=== PATIENT | female | born 1950 | race Caucasian/White ===

== ENCOUNTER 2023-12-11 11:38 | Inpatient (IN) ==
[2023-12-11] MEDS: ONDANSETRON INJ 2 MG/ML 2 ML VIAL IV STA (11:53)
--- NOTE | 2023-12-11 11:58 | Emergency Department Note ---
Impression & Plan SBO (small bowel obstruction), Abdominal pain, epigastric ED Provider Note NAME: KEL GONGORA AGE: 73 SEX: F : 1950 ARRIVES VIA: Walk-In INFORMANT: Patient, ED PROVIDER(S): Grabiel Rockwell DO CHIEF COMPLAINT: Abdominal pain HPI: The patient is a 73-year-old female who presented to the emergency department for an evaluation of abdominal pain. The patient describes upper abdominal pain that began overnight. She states the pain was very severe overnight. She felt as though something was caught that she ate but she did not have any specific chest pain it was mostly epigastric pain. She denies having any rectal bleeding. She has a history of cholecystectomy in the past and thought the pain was similar. The patient denies having any back pain. ROS: See above HPI for pertinent positives & negatives. A total of 10 systems reviewed and were otherwise negative. PAST MEDICAL HISTORY: See Below PAST SURGICAL HISTORY: See Below FAMILY HISTORY: See Below SOCIAL HISTORY: See Below HOME MEDICATIONS: See Below ALLERGIES: See Below VITALS: See Below PHYSICAL EXAMINATION: GENERAL: Patient is awake alert in no acute distress patient is resting comfortably and showing no signs of anxiety EYES: The conjunctivae are clear. The pupils are round and reactive. EARS, NOSE, MOUTH AND THROAT: The nose is without any evidence of any deformity. Mucous membranes are moist. Tongue is midline. NECK: The neck is nontender and supple. RESPIRATORY: Normal respiratory effort is noted there is no evidence of wheezing rhonchi or rales CARDIOVASCULAR: Regular rate and rhythm noted there no murmurs rubs or gallops normal S1 normal S2. GASTROINTESTINAL: The abdomen is soft and nondistended. There is epigastric and supraumbilical pain to palpation. There is no palpable mass. MUSCULOSKELETAL/EXTREMITIES: There is no evidence of gross deformity full range of motion is noted in the hips and shoulders. SKIN: There is no obvious evidence of any rash. There are no petechiae, pallor or cyanosis noted. NEUROLOGIC: Patient is awake alert and oriented x3 gait was steady. MEDICAL DECISION MAKING: The patient is a 73-year-old female who presented to the emergency department for an evaluation of upper abdominal pain. The patient complained of epigastric and supraumbilical pain. On physical exam she did not have guarding however given her age and comorbidities further laboratory and radiographic studies were obtained. A CT of the abdomen and pelvis was obtained which appears to be consistent with a bowel obstruction and the suggestion of an internal hernia. I discussed the patient's condition with the on-call general surgeon. Given the patient's current physical exam it does not appear the patient is an acute surgical candidate. She is not actively vomiting. She did not require any pain medication. Surgery will consider to the patient for inpatient observation to determine what direction this process goes. I also discussed the case with the on-call [facility]. They have agreed to evaluate the patient in the emergency department for medical management. Triage Nursing notes reviewed. Prior medical records reviewed Vital Signs: reviewed and remarkable for no significant abnormalities Differential diagnosis: Etiologies such as appendicitis, diverticulitis, obstruction, inflammatory bowel disease, renal colic, PUD, biliary pathology, pancreatitis, mesenteric ischemia, aortic pathology, infections, genitourinary, UTI, perforated viscus, as well as others were entertained. ER treatment provided: See below Diagnostics interpreted by me: ECG: EKG was obtained in the emergency department. My interpretation is normal sinus rhythm at 95 bpm. There was no ectopy. Nonspecific lateral ST abnormalities were noted. No previous tracing was available. Cardiac Monitoring: An order was placed for continuous cardiac monitoring. The monitor shows a rate of 90 bpm with sinus rhythm. Laboratory studies: As stated above and show below. Imaging studies: See below. Radiographic imaging was reviewed by myself Consultation(s): I discussed this case with Dr. Horvath who is on-call for general surgery. I discussed this case with Jackie who is on-call for the [facility]. Past Med/Surg History Problem List (Updated 12/11/23 @ 13:25 by Grabiel Rockwell DO) Abdominal pain, epigastric (Acute) SBO (small bowel obstruction) (Acute) Surgical History (Updated 12/11/23 @ 13:49 by Grabiel Rockwell DO) History of cholecystectomy Social History Smoking Status: Never smoker Preferred Language: Kiswahili Feels Safe at Home: Yes Results & Data (ED) Vital Signs Vital Signs - 24 hr 12/11/23 11:40 12/11/23 11:58 12/11/23 12:08 Temperature 36.2 C L Temperature Source Temporal Artery Scan Pulse Rate 115 H 94 H 81 Pulse Rate [Apical] Pulse Rhythm Regular Respiratory Rate 18 16 Respiratory Effort / Characteristics Non-Labored Spontaneous Respiratory Depth Normal Respiratory Pattern Regular Blood Pressure 141/83 H Blood Pressure [Right Arm] Blood Pressure Mean 102 Blood Pressure Mean [Right Arm] Pulse Oximetry 18 L 91 Oxygen Delivery Method Room Air Room Air Sepsis Recent Fever Within 48 Hours No Sepsis New/Unexplained Change in Mental Status N/A Sepsis Action Taken by Nursing No Action Required 12/11/23 13:13 Temperature Temperature Source Pulse Rate Pulse Rate [Apical] 90 Pulse Rhythm Respiratory Rate 20 Respiratory Effort / Characteristics Non-Labored Respiratory Depth Normal Respiratory Pattern Blood Pressure Blood Pressure [Right Arm] 116/97 Blood Pressure Mean Blood Pressure Mean [Right Arm] 103 Pulse Oximetry 98 Oxygen Delivery Method Room Air Sepsis Recent Fever Within 48 Hours Sepsis New/Unexplained Change in Mental Status Sepsis Action Taken by [facility] Medications Current Medication List: was personally reviewed by me Laboratory Data Attestation: I reviewed the patient's lab results. 12/11/23 11:55 12/11/23 11:55 Lab Results 12/11/23 Range/Units 11:55 WBC 14.72 H (4.8-10.8) K/ul RBC 4.92 (4.20-5.40) M/uL Hgb 15.1 (12.0-16.0) g/dl Hct 45.5 (37.0-47.0) % MCV 92.5 (80.0-100.0) fL MCH 30.7 (25.0-34.0) pg MCHC 33.2 (32.0-36.0) g/dL RDW Std Deviation 38.2 (36.4-46.3) fL RDW Coeff of Delgado 11.1 L (11.5-14.5) % Plt Count 332 (130-400) K/uL MPV 9.4 (9.4-12.4) fL Immature Gran % (Auto) 0.4 % Neut % (Auto) 92.1 % Lymph % (Auto) 5.6 % Sharkey % (Auto) 1.7 % Eos % (Auto) 0.1 % Baso % (Auto) 0.1 % Neut # (Auto) 13.56 H (1.40-6.50) K/uL Lymph # (Auto) 0.82 L (1.20-3.40) K/uL Sharkey # (Auto) 0.25 (0.11-0.59) K/uL Eos # (Auto) 0.01 (0.00-0.50) K/uL Baso # (Auto) 0.02 (0.00-0.20) K/uL Immature Gran # (Auto) 0.06 (0.01-0.20) K/uL Sodium 138 (136-145) mmol/L Potassium 4.2 (3.5-5.1) mmol/L Chloride 98 (98-107) mmol/L Carbon Dioxide 29 (21-32) mmol/L Anion Gap 11 (3-11) BUN 26 H (6-23) mg/dl Creatinine 1.00 (0.6-1.2) mg/dl Est Cr Clr Drug Dosing 46.4 ml/min eGFR 60.23 BUN/Creatinine Ratio 26.0 H (10-20) Glucose 134 H (70-99(Fasting)) mg/dl Calcium 10.1 (8.6-10.3) mg/dl Total Bilirubin 1.0 (0.2-1.0) mg/dl AST 28 (13-39) U/L ALT 15 (7-52) U/L Alkaline Phosphatase 87 (34-104) U/L Troponin I High Sens 5.8 (0-14) pg/ml Total Protein 8.7 H (6.0-8.3) gm/dl Albumin 4.7 (3.4-5.0) gm/dl Globulin 4.0 (2.5-4.0) gm/dl Albumin/Globulin Ratio 1.2 (0.9-2) Lipase 14 (11-82) U/L Administered Medications Discontinued Medications Ioversol (Optiray 320 100ml) 94 ml IV ONCE ONE Stop: 12/11/23 12:19 Last Admin: 12/11/23 12:18 Dose: 94 ml Documented By: EDK Ondansetron HCl (Ondansetron Inj 2 Mg/Ml 2 Ml Vial) 4 mg IV NOW STA Stop: 12/11/23 11:49 Last Admin: 12/11/23 11:53 Dose: 4 mg Documented By: BMK Imaging Data Attestation: I personally reviewed and interpreted this imaging study as follows: My Impression: CT the abdomen pelvis was obtained in the emergency department. My interpretation is no free air there is dilation of the small bowel. Final report below. Radiologist's Impression: Abdomen/Pelvis CT 12/11/23 11:[address] WITH IV CONTRAST CT DOSE: 1035.68 mGy.cm HISTORY: Acute upper abdominal pain upper pain TECHNIQUE: Multiaxial CT images of the abdomen and pelvis were performed following the IV administration of 94 cc of Optiray, A dose lowering technique was utilized adhering to the principles of ALARA. COMPARISON STUDY: None. FINDINGS: Clear lung bases. No pneumatosis or pneumoperitoneum. Cholecystectomy. Unremarkable spleen, mildly atrophic pancreas and adrenal glands.r probable cyst of the right hepatic lobe measures 11 mm. Patency of the hepatic and portal veins. Unremarkable kidneys. Partially decompressed bladder. Fibroid uterus. 5 cm left adnexal cystic lesion. Atherosclerosis of the abdominal aorta. No lymphadenopathy. Trace pelvic ascites. Colonic diverticulosis without acute diverticulitis. The large bowel and distal ileum are decompressed. Noninflamed appendix. There is twisting of the abdominal right lower quadrant mesentery. Several mildly dilated air and fluid-filled loops of small bowel noted within the abdomen and pelvis measuring up to approximately 3 cm. A transition point is noted within the abdominal right lower quadrant on image 238 series 3. Mild intraluminal edema. No acute fracture. Unremarkable soft tissues. IMPRESSION: 1. High-grade small bowel obstruction with transition point within the right hemipelvis, likely secondary to an internal hernia. Trace associated ascites with interloop edema. 2. No pneumatosis or pneumoperitoneum. 3. Normal appendix. 4. Colonic diverticulosis. 5. Indeterminate 5 cm left adnexal cystic lesion. 6. Fibroid uterus. ACT 112: Negative or not required by law. The above report was generated using voice recognition software. It may contain grammatical, syntax or spelling errors. Electronically signed by: Kris Brown M.D. 12/11/2023 12:45 PM Discharge Plan Visit Data Chief Complaint: Abdominal Pain Stated Complaint: ABDOMINAL PAIN ED Provider: Grabiel Rockwell Discharge Problem: SBO (small bowel obstruction), Abdominal pain, epigastric
[2023-12-11] MEDS: OPTIRAY 320 100ml IV ONE (12:18)
[2023-12-11 12:20] LABS: Hematocrit (blood only) 45.5 % (37.0-47.0); Hemoglobin 15.1 g/dl (12.0-16.0); Mean Corpuscular Hemoglobin 30.7 pg (25.0-34.0); Mean Corpuscular Hgb Conc 33.2 g/dL (32.0-36.0); Mean Corpuscular Volume 92.5 fL (80.0-100.0); Mean Platelet Volume 9.4 fL (9.4-12.4); Platelet Count 332 K/uL (130-400); RDW Coefficient of Variation 11.1 % (11.5-14.5); RDW Standard Deviation 38.2 fL (36.4-46.3); Red Blood Count 4.92 M/uL (4.20-5.40); White Blood Count 14.72 K/ul (4.8-10.8)
[2023-12-11 12:36] LABS: Albumin Globulin Ratio 1.2 (0.9-2); Albumin Level 4.7 gm/dl (3.4-5.0); Calcium 10.1 mg/dl (8.6-10.3); Creatinine Clr Calc Pharmacy 46.4 ml/min; Potassium 4.2 mmol/L (3.5-5.1); Total Protein 8.7 gm/dl (6.0-8.3)
[2023-12-11 12:40] LABS: Basophils # (auto) 0.02 K/uL (0.00-0.20); Basophils % (auto) 0.1 %; Eosinophils # (auto) 0.01 K/uL (0.00-0.50); Eosinophils % (auto) 0.1 %; Immature Granulocytes # (auto) 0.06 K/uL (0.01-0.20); Immature Granulocytes % (auto) 0.4 %; Lymphocytes # (auto) 0.82 K/uL (1.20-3.40); Lymphocytes % (auto) 5.6 %; Monocytes # (auto) 0.25 K/uL (0.11-0.59); Monocytes % (auto) 1.7 %; Neutrophils # (auto) 13.56 K/uL (1.40-6.50); Neutrophils % (auto) 92.1 %
[2023-12-11 12:43] LABS: Troponin I High Sensitivity 5.8 pg/ml (0-14)
--- NOTE | 2023-12-11 12:47 | CT Scan Report ---
ABDOMEN AND PELVIS CT WITH IV CONTRAST CT DOSE: 1035.68 mGy.cm HISTORY: Acute upper abdominal pain upper pain TECHNIQUE: Multiaxial CT images of the abdomen and pelvis were performed following the IV administrat ion of 94 cc of Optiray, A dose lowering technique was utilized adhering to the principles of ALARA. COMPARISON STUDY: None. FINDINGS: Clear lung bases. No pneumatosis or pneumoperitoneum. Cholecystectomy. Unremarkable spleen, mildly atrophic pancreas and adrenal glands.r probable cyst of the right hepatic lobe measures 11 mm . Patency of the hepatic and portal veins. Unremarkable kidneys. Partially decompressed bladder. Fibr oid uterus. 5 cm left adnexal cystic lesion. Atherosclerosis of the abdominal aorta. No lymphadenopat hy. Trace pelvic ascites. Colonic diverticulosis without acute diverticulitis. The large bowel and distal ileum are decompressed. Noninflamed appendix. There is twisting of the abdominal right lower quadran t mesentery. Several mildly dilated air and fluid-filled loops of small bowel noted within the abdome n and pelvis measuring up to approximately 3 cm. A transition point is noted within the abdominal rig ht lower quadrant on image 238 series 3. Mild intraluminal edema. No acute fracture. Unremarkable soft tissues. IMPRESSION: 1. High-grade small bowel obstruction with transition point within the right hemipelvis, likely secon tammie to an internal hernia. Trace associated ascites with interloop edema. 2. No pneumatosis or pneumoperitoneum. 3. Normal appendix. 4. Colonic diverticulosis. 5. Indeterminate 5 cm left adnexal cystic lesion. 6. Fibroid uterus. ACT 112: Negative or not required by law. The above report was generated using voice recognition software. It may contain grammatical, syntax o r spelling errors. Electronically signed by: Kris Brown M.D. 12/11/2023 12:45 PM
--- NOTE | 2023-12-11 13:40 | Surgery Consultation ---
Date of Consultation December 11, 2023 Assessment & Plan (1) SBO (small bowel obstruction): 73-year-old woman with a prior history of a laparoscopic cholecystectomy presents with a small bowel obstruction. I discussed the CT scan findings with the emergency room physician as well as the radiologist directly. It appears there may be an internal hernia, although this is not definite. She has mild dilatation upstream of small bowel loops. On exam, she has minimal signs and symptoms. Her pain has very significantly improved since 10:00 this morning. She has not had any pain medicine while at the emergency department. She does not have fevers or chills. White blood cell count is 14. I had a long di scussion with her and her concerning the findings on CT scan. Given the drastic improvement of her symptomatology as well as no signs or symptoms of bowel ischemia or extremis, we will proceed with careful conservative measures for now. She will be admitted to the medicine service and kept n.p.o. with IV fluid hydration. We will perform serial abdominal exams. If she develops any further symptoms or signs of worsening bowel obstruction, we will plan for exploratory laparoscopy with possible laparotomy in the operating room. We will follow her very closely while she is in the hospital. History of Present Illness Reason for Consultation: Small bowel obstruction Requesting Physician: Grabiel Rockwell MD Attending Physician: Grabiel Rockwell MD History of Present Illness 73-year-old woman with a past surgical history of laparoscopic cholecystectomy presents with a 12-hour history of severe upper abdominal pain with 2 episodes of vomiting. She denies fevers or chills. She has never had an episode like this in the past. The pain lasted until 10 AM this morning. Since 10:00, the pain has significantly improved. She has not had any pain medicine while at the hospital. She denies flatus this morning. She has never had any other abdominal operations. CT scan demonstrates small bowel obstruction with transition point in the right pelvis, there is a question of an internal hernia in this location. Patient History Social History Smoking Status: Never smoker Preferred Language: Vietnamese Feels Safe at Home: Yes Review of Systems Review of Systems: All systems reviewed & are unremarkable except as noted in HPI & below Physical Exam Constitutional: WD/WN, vitals as above Eyes: PERRL, conjunctivae normal, anicteric sclerae Neck: trachea midline, no thyromegaly Respiratory: normal respiratory effort; no respiratory distress and no labored breathing Cardiovascular: Rate/Rhythm: regular rate and regular rhythm Gastrointestinal (Abdomen): Inspection/Auscultation: abdomen normal to inspection; abdomen not distended Percussion/Palpation: + abdomen tender ( Mild tenderness upper abdomen) and abdomen soft; no guarding and abdomen not rigid Skin: no rashes, warm and dry Psychiatric: A+Ox3, euthymic affect Results & Data Vital Signs (Past 12 Hours) Vital Signs Temp Pulse Pulse Resp BP BP Pulse Ox 12/11/23 13:13 90 20 116/97 98 12/11/23 12:08 81 12/11/23 11:58 94 H 16 91 12/11/23 11:40 36.2 C L 115 H 18 141/83 H 18 L O2 Del Method 12/11/23 13:13 Room Air 12/11/23 12:08 12/11/23 11:58 Room Air 12/11/23 11:40 Room Air Laboratory Results 12/11/23 Range/Units 11:55 WBC 14.72 H (4.8-10.8) K/ul RBC 4.92 (4.20-5.40) M/uL Hgb 15.1 (12.0-16.0) g/dl Hct 45.5 (37.0-47.0) % MCV 92.5 (80.0-100.0) fL MCH 30.7 (25.0-34.0) pg MCHC 33.2 (32.0-36.0) g/dL RDW Std Deviation 38.2 (36.4-46.3) fL RDW Coeff of Delgado 11.1 L (11.5-14.5) % Plt Count 332 (130-400) K/uL MPV 9.4 (9.4-12.4) fL Immature Gran % (Auto) 0.4 % Neut % (Auto) 92.1 % Lymph % (Auto) 5.6 % Irion % (Auto) 1.7 % Eos % (Auto) 0.1 % Baso % (Auto) 0.1 % Neut # (Auto) 13.56 H (1.40-6.50) K/uL Lymph # (Auto) 0.82 L (1.20-3.40) K/uL Irion # (Auto) 0.25 (0.11-0.59) K/uL Eos # (Auto) 0.01 (0.00-0.50) K/uL Baso # (Auto) 0.02 (0.00-0.20) K/uL Immature Gran # (Auto) 0.06 (0.01-0.20) K/uL Sodium 138 (136-145) mmol/L Potassium 4.2 (3.5-5.1) mmol/L Chloride 98 (98-107) mmol/L Carbon Dioxide 29 (21-32) mmol/L Anion Gap 11 (3-11) BUN 26 H (6-23) mg/dl Creatinine 1.00 (0.6-1.2) mg/dl Est Cr Clr Drug Dosing 46.4 ml/min eGFR 60.23 BUN/Creatinine Ratio 26.0 H (10-20) Glucose 134 H (70-99(Fasting)) mg/dl Calcium 10.1 (8.6-10.3) mg/dl Total Bilirubin 1.0 (0.2-1.0) mg/dl AST 28 (13-39) U/L ALT 15 (7-52) U/L Alkaline Phosphatase 87 (34-104) U/L Troponin I High Sens 5.8 (0-14) pg/ml Total Protein 8.7 H (6.0-8.3) gm/dl Albumin 4.7 (3.4-5.0) gm/dl Globulin 4.0 (2.5-4.0) gm/dl Albumin/Globulin Ratio 1.2 (0.9-2) Lipase 14 (11-82) U/L Diagnostic Findings ABDOMEN AND PELVIS CT WITH IV CONTRAST CT DOSE: 1035.68 mGy.cm HISTORY: Acute upper abdominal pain upper pain TECHNIQUE: Multiaxial CT images of the abdomen and pelvis were performed following the IV administration of 94 cc of Optiray, A dose lowering technique was utilized adhering to the principles of ALARA. COMPARISON STUDY: None. FINDINGS: Clear lung bases. No pneumatosis or pneumoperitoneum. Cholecystectomy. Unremarkable spleen, mildly atrophic pancreas and adrenal glands.r probable cyst of the right hepatic lobe measures 11 mm. Patency of the hepatic and portal veins. Unremarkable kidneys. Partially decompressed bladder. Fibroid uterus. 5 cm left adnexal cystic lesion. Atherosclerosis of the abdominal aorta. No lymphadenopathy. Trace pelvic ascites. Colonic diverticulosis without acute diverticulitis. The large bowel and distal ileum are decompressed. Noninflamed appendix. There is twisting of the abdominal right lower quadrant mesentery. Several mildly dilated air and fluid-filled loops of small bowel noted within the abdomen and pelvis measuring up to approximately 3 cm. A transition point is noted within the abdominal right lower quadrant on image 238 series 3. Mild intraluminal edema. No acute fracture. Unremarkable soft tissues. IMPRESSION: 1. High-grade small bowel obstruction with transition point within the right hemipelvis, likely secondary to an internal hernia. Trace associated ascites with interloop edema. 2. No pneumatosis or pneumoperitoneum. 3. Normal appendix. 4. Colonic diverticulosis. 5. Indeterminate 5 cm left adnexal cystic lesion. 6. Fibroid uterus. ACT 112: Negative or not required by law.
--- NOTE | 2023-12-11 13:41 | History & Physical Report ---
Date of Service December 11, 2023 Assessment & Plan (1) SBO (small bowel obstruction): Piotr Patel is a 73y/o F with PMHx significant for dyslipidemia, prolapsed uterus and plantar warts who presented to the ED for evaluation of abdominal pain with associated nausea/vomiting and was found to have a high-grade SBO. High-Grade SBO: Vitals stable on presentation. WBC elevated at 14.72k, no acute electrolyte abnormalities. UA negative for infection. Leukocytosis likely reactive secondary to pain. CTAP revealed a high-grade small bowel obstruction with transition point within the right hemipelvis. General surgery was consulted in the ED --> Will proceed with careful conservative measures for now given significant improvement in her pain and nausea/vomiting. Gentle IVF replacement with LR's x 2 bags. Bowel rest, strict NPO. If the patient were to develop any further symptoms or signs of worsening bowel obstruction, she would then require surgical intervention such as an exploratory laparoscopy with possible laparotomy. As needed IV Tylenol and IV Zofran ordered. Incidental CTAP Finding: CTAP also noted an indeterminate 5cm left adnexal cystic lesion. Will need outpatient follow-up with COMMUNITY ENGAGEMENT REPRESENTATIVE for further evaluation. DVT Prophylaxis: SCDs/TEDs for now pending possible need for surgical intervention. Code Status: FULL CODE PCP: Tess Jones DO Disposition: Admit to Med/Surg Patient seen in collaboration with Dr. Stephen. Please see addendum. I spent a total of 50 minutes coordinating, documenting, and providing care for this patient excluding time spent in the performance of separately billed services. This included personally reviewing all current laboratories and imaging studies, medical reconciliation, outpatient chart review and discussion with specialists. This chart was completed in part utilizing Speech Voice Recognition Software. Grammatical errors, random word insertions, pronoun errors, and incomplete sentences are an occasional consequence of this system due to software limitations, ambient noise, and hardware issues. Any formal questions or concerns about the content, text, or information contained within the body of this dictation should be directly addressed to the provider for clarification. History of Present Illness Chief Complaint: Abdominal Pain, N/V Primary Care Provider: Tess Jones DO Veronica Patel is a 73y/o F with PMHx significant for dyslipidemia, prolapsed uterus and plantar warts who presented to the ED for evaluation of abdominal pain with associated nausea and vomiting. History obtained from patient and a ssociated chart review. Patient reports intermittent severe abdominal pain that started last night. Mentions that the pain is located mostly in her upper abdominal region. States that the pain was coming in waves and was very sharp in intensity but lasting only a few minutes at a time. She had 2 episodes of vomiting since last night. Denies any fevers or chills. Only past surgical history includes a laparoscopic cholecystectomy. No other abdominal operations that she recalls. Her pain is now well-controlled and she denies any nausea at this time. She has had 2 very small bowel movements since last night, describes them as soft in characteristic. Mentions that her stool looked a little bit darker in appearance, maybe even black this morning. She contributed this to eating some blueberries the other day. Her last meal was yesterday evening which consisted of an apple and some crackers. Believes that she last passed gas yesterday afternoon. She has not passed any gas today. Patient is not on any prescription medications. She does not smoke nor drink. Home Medications Medication Instructions Recorded Confirmed Type No Known Home Medications 12/11/23 12/11/23 History Past Med/Surg History Problem List Abdominal pain, epigastric (Acute) SBO (small bowel obstruction) (Acute) Surgical History History of cholecystectomy Social History Smoking Status: Never smoker Second Hand Exposure: No; Do You Dip or Chew Tobacco: No; Hx Alcohol Use: No Hx Substance Use: No Preferred Language: Yi Communication Ability: Effective Retail Sales Specialist Required: No Beliefs That Will Affect Care: None Current Living Situation: Spouse Other Information That Helps Us Care for You: No Feels Safe at Home: Yes Safety Concerns: Feels Safe At This Time Assistive Devices: None Review of Systems Review of Systems: At least ten systems reviewed and negative, except as noted in the HPI. Physical Exam Physical Exam: General: WD/WN, vitals as above, NAD, sitting up in bed, pleasant, conversing appropriately. A+Ox3, euthymic affect. HEENT: Normocephalic, atraumatic. PERRL, conjunctivae normal, anicteric sclerae. External ear and nose normal, oropharynx normal. Respiratory: Normal respiratory effort, lungs clear to auscultation, no wheeze, rales, rhonchi. No accessory muscle use. Cardiovascular: Regular rate, rhythm, no murmur, normal peripheral pulses, no BLE edema. Vessels: No JVD. Abdomen/GI: Mostly absent bowel sounds, soft, tender to palpation in upper abdominal region, no hepatosplenomegaly. Extremities/Musculoskeletal: No cyanosis or clubbing, extremities motor strength intact, moves all extremities. Neurologic: EOMI, no focal deficits, CN's II-XI not formally tested but appear grossly intact bilaterally. Skin: No rashes, normal color, warm/dry. Results & Data Results & Data Vital Signs (Past 12 Hours) Vital Signs Temp Pulse Pulse Resp BP BP Pulse Ox 12/11/23 13:13 90 20 116/97 98 12/11/23 12:08 81 12/11/23 11:58 94 H 16 91 12/11/23 11:40 36.2 C L 115 H 18 141/83 H 18 L O2 Del Method 12/11/23 13:13 Room Air 12/11/23 12:08 12/11/23 11:58 Room Air 12/11/23 11:40 Room Air Laboratory Results Short CBC 12/11/23 Range/Units 11:55 WBC 14.72 H (4.8-10.8) K/ul Hgb 15.1 (12.0-16.0) g/dl Hct 45.5 (37.0-47.0) % Plt Count 332 (130-400) K/uL BMP 12/11/23 11:55 Sodium 138 Potassium 4.2 Chloride 98 Carbon Dioxide 29 BUN 26 H Creatinine 1.00 Glucose 134 H Calcium 10.1 Liver Function 12/11/23 Range/Units 11:55 Total Bilirubin 1.0 (0.2-1.0) mg/dl AST 28 (13-39) U/L ALT 15 (7-52) U/L Alkaline Phosphatase 87 (34-104) U/L Albumin 4.7 (3.4-5.0) gm/dl Diagnostic Findings Abdomen/Pelvis CT 12/11/23 11:[address] WITH IV CONTRAST CT DOSE: 1035.68 mGy.cm HISTORY: Acute upper abdominal pain upper pain TECHNIQUE: Multiaxial CT images of the abdomen and pelvis were performed following the IV administration of 94 cc of Optiray, A dose lowering technique was utilized adhering to the principles of ALARA. COMPARISON STUDY: None. FINDINGS: Clear lung bases. No pneumatosis or pneumoperitoneum. Cholecystectomy. Unremarkable spleen, mildly atrophic pancreas and adrenal glands.r probable cyst of the right hepatic lobe measures 11 mm. Patency of the hepatic and portal veins. Unremarkable kidneys. Partially decompressed bladder. Fibroid uterus. 5 cm left adnexal cystic lesion. Atherosclerosis of the abdominal aorta. No lymphadenopathy. Trace pelvic ascites. Colonic diverticulosis without acute diverticulitis. The large bowel and distal ileum are decompressed. Noninflamed appendix. There is twisting of the abdominal right lower quadrant mesentery. Several mildly dilated air and fluid-filled loops of small bowel noted within the abdomen and pelvis measuring up to approximately 3 cm. A transition point is noted within the abdominal right lower quadrant on image 238 series 3. Mild intraluminal edema. No acute fracture. Unremarkable soft tissues. IMPRESSION: 1. High-grade small bowel obstruction with transition point within the right hemipelvis, likely secondary to an internal hernia. Trace associated ascites with interloop edema. 2. No pneumatosis or pneumoperitoneum. 3. Normal appendix. 4. Colonic diverticulosis. 5. Indeterminate 5 cm left adnexal cystic lesion. 6. Fibroid uterus. ACT 112: Negative or not required by law. The above report was generated using voice recognition software. It may contain grammatical, syntax or spelling errors. Electronically signed by: Kris Brown M.D. 12/11/2023 12:45 PM Medications Administered Discontinued Medications Ioversol (Optiray 320 100ml) 94 ml IV ONCE ONE Stop: 12/11/23 12:19 Last Admin: 12/11/23 12:18 Dose: 94 ml Documented By: ROSARIO Ondansetron HCl (Ondansetron Inj 2 Mg/Ml 2 Ml Vial) 4 mg IV NOW STA Stop: 12/11/23 11:49 Last Admin: 12/11/23 11:53 Dose: 4 mg Documented By: CRISTINAK Code Status & VTE Plan Code Status FULL CODE Supervising Physician Co-Signing Physician Notes Attending Addendum: Case reviewed with the advanced practitioner. I have personally performed a history and physical examination on the patient. I have reviewed the advanced practitioner's documentation on the date of service referenced in note, and I agree with, and take responsibility for the plan of care. please refer to her notes for full details patient seen and examined, records reviewed by myself as well on exam, patient seen resting in bed, comfortable, just walked back to bed from the bathroom in good spirits no abdominal pain, nausea no flatus or BM yet no fever/chills no other symptoms VS noted and reviewed oriented x 3 , not in distress, speaks in sentences with no effort nor accessory muscle use normal rate, regular rhythm, no murmurs clear breath sounds bilaterally non distended, hypoactive bowel sounds, soft, nontender no bipedal edema, erythema, warmth no neuro deficits all labs, imaging noted and reviewed ASSESSMENT AND PLAN> HIGH GRADE SMALL BOWEL OBSTRUCTION CT abdomen/pelvis: 1. High-grade small bowel obstruction with transition point within the right hemipelvis, likely secondary to an internal hernia. Trace associated ascites with interloop edema. 2. No pneumatosis or pneumoperitoneum. 3. Normal appendix. 4. Colonic diverticulosis. 5. Indeterminate 5 cm left adnexal cystic lesion. 6. Fibroid uterus. history of cholecystectomy in 1995 no active nausea, hold off on NG tube IV fluids, NPO except sips of water, monitor labs Gen Surg consulted- conservative management for now, monitor closely encouraged to ambulate UTERINE FIBROIDS ADNEXAL CYST, LEFT -needs outpatient work up and follow up with [employer] Plans Staff Officer other diagnoses and plan of care as per advanced practitioner's notes Narciso Stephen MD
[2023-12-11 15:21] LABS: Appearance Urine Clear (Clear); Bacteria Urine Automated None Seen (None Seen); Bilirubin Urine Negative (Negative); Blood Urine Negative (Negative); Cast Urine Automated 0-2 /lpf (0-2); Color Urine Yellow; Epithelial Cell Urine Auto 0-2 /hpf (0-2); Glucose Urine UA Negative (Negative); Ketones Urine 1+ (Negative); Leukocyte Esterase Urine Negative (Negative); Nitrite Urine Negative (Negative); Protein Urine Trace (Negative); RBC Urine Automated 0-2 /hpf (0-2); Specific Gravity Urine > 1.045 (1.000-1.030); Urobilinogen Urine Negative (Negative); WBC Urine Automated 0-5 /hpf (0-5)
[2023-12-11] MEDS ORDERED: ACETAMINOPHEN 325 MG TAB PO PRN (16:04)
[2023-12-11] MEDS ORDERED: ONDANSETRON INJ 2 MG/ML 2 ML VIAL IV PRN (16:04)
[2023-12-11] MEDS ORDERED: ACETAMINOPHEN 1,000 MG/100 ML VIAL IV PRN (16:04)
--- OUTSIDE RECORDS SUMMARY | 2023-12-11 16:04 | External Medical Summary | Summary of Care ---
Author Name Unknown Organization [facility] Address [address] [place] [address] Phone [phone] Care Team Providers Care Compression Molding Machine Operator Name Role Phone Tess Jones DO Primary Care Provider [phone] Reason for Visit * Reason Onset Date Comments Nutritional Services Documentation 08/04/2023 Encounter Details Date Type Department Care Team (Late st Contact Info) Description 08/04/2023 2:30 PM EDT Scheduled Telephone Nutrition Services [address] [facility] [place] [address] [place] [address] Sumi Dwyer RDN [address] [place] [address] Arrived Allergies No known active allergiesdocumented as of this encounter (statuses as of 08/04/2023) Medications Medication Sig Dispensed Refills Start Date End Date Status Vitamin D3 125 MCG (5000 UT) Oral Capsule Take 1 Capsule by mouth in the morning. 30 Cap 05/06/2020 Active Vitamin C 1000 MG Oral Tablet Take 1 Tablet by mouth in the morning. Active EQ Daily Fiber 400 MG Oral Capsule (Psyllium) Take 1 Tablet by mouth in the morning. Active Probiotic (Lactobacillus) Oral Capsule Take 2 Capsules by mouth every evening. Active Calcium Carbonate 600 MG Oral Tablet (Calcium 600) Take 1 Tablet by mouth in the morning. 20 mcg Vit D . Active Multivitamin Women 50+ Oral Tablet Take 1 Tablet by mouth in the morning. Active documented as of this encounter (statuses as of 08/04/2023) Active Problems Problem Noted Date Diagnosed Date Skin tumor 11/22/2014 Lichenoid keratosis 11/22/2014 Milia 11/22/2014 documented as of this encounter (statuses as of 08/04/2023) Resolved Problems Problem Noted Date Diagnosed Date Resolved Date Peripheral vascular disease 05/06/2020 05/06/2020 Varicella without complication 04/26/2017 documented as of this encounter (statuses as of 08/04/2023) Immunizations Name Administration Dates Next Due COVID-19 mRNA, LNP-s, No Pre serve, 2-Dose Series (Lemon Curve) 02/11/2021,05/08/2020,04/17/2020 Covid-19, Mrna, Lnp-s, Pf, B ivalent, 30 Mcg, IM, 12 yrs and above (Pfizer) 02/10/2022 Pneumococcal Conjugate Vacc, 13 Valent (Prevnar) 05/09/2018 Pneumococcal Polysaccharide PPV23 (Pneumovax) 10/03/2019 Season Influenza, Quad, PF, Adjuvanted, 65+ Yrs, IM (FLUAD) 12/28/2022,12/10/2020 Seasonal Influenza, PF, 6 M & above, IM , (FluLaval or Fluzone) 05/09/2018 Seasonal Influenza, Quadriva lent Hd (Fluzone Hd) 12/01/2021 Seasonal Influenza, Split, I IV3, With Preserve, Inj 04/25/2012 Seasonal Influenza, Trivalen t, Adjuvanted, 65+ yrs 11/25/2019,03/16/2019 TDAP (age 10 and older)(Boostrix) 12/01/2021 TDAP, Age 7 and older, IM (Adacel) 07/16/2010 Varicella Zoster Vaccine (Adult) 04/25/2012 Zoster Vaccine Recombinant (Shingrix) 08/29/2019 ,05/26/2019 documented as of this encounter Social History Tobacco Use Types Packs/Day Years Used Date Smoking Tobacco: Never Passive Smoke Exposure: Never Smokeless Tobacco: Never Alcohol Use Standard Drinks/Week Comments No 0 (1 standard drink = 0.6 oz pur e alcohol) PHQ-2 Answer Date Recorded PHQ Adult Total Score 1 01/13/2022 Hunger Vital Sign Answer Date Recorded Within the past 12 months, y ou worried that your food would run out before you got the money to buy more. Never true 04/16/19 24 Within the past 12 months, t he food you bought just didn't last and you didn't have money to get more. Never true 04/16/2023 Sex and Gender Information Value Date Recorded Sex Assigned at Female 01/13/2022 3:13 PM EST Gender Identity Female 01/13/2022 3:13 PM EST Sexual Orientation Straight 01/13/2022 3: 13 PM EST Job Start Date Occupation Industry Not on file Not on file Not on file documented as of this encounter Miscellaneous Notes * Telephone Encounter - Sumi Dwyer RDN - 08/04/2023 2:17 PM EDT [address] [place] [address] Dietitian Phone Outreach Reached out to patient to check in on nutrition status and offer nutrition information for HTN/future nutrition visit. Result of call: Patient did not answer--left a message requesting a call to [address] [place] [address] at [phone] if there arespecific questions and schedule an initial nutrition appointment. Electronically signed by: Sumi Dwyer RDN, NUTRITION SERVICES [address] [place] [address] documented in this encounter Plan of Treatment Upcoming Encounters Date Type Department Care Team (Late st Contact Info) Description 08/26/2023 10:40 AM EDT Office Visit Family Practice [address] [place] [phone] Tess Jones DO [address] [place] [address] Scheduled Procedures Name Priority Associated Diagnoses Date/Ti me COLONOSCOPY FLEXIBLE PROXIMAL DIAGNOSTIC Recall History of colon polyps Health Maintenance Due Date Last Done Comments Cologuard 1997 Fecal Occult Blood Test 1997 Sigmoidoscopy 1997 Depression Screening 01/13/2023 01/13/2022 COVID-19 Vaccine ( season) 2023 12/28/2022, 02/10/2022, 02/11/2021, Additional history exists DXA Scan 05/03/2024 05/03/2017, 05/31, 06/05/2004, Additional history exists Colonoscopy 05/16/2024 05/17/2019, 04/29, 05/16/2013, Additional history exists Colorectal Cancer Screening 05/16/2024 Mammogram 07/01/2024 07/02/2023, 05/30, 06/11/2022, Additional history exists Lipid Panel 02/02/2028 02/01/2023, 04/2021, 05/06/2020, Additional history exists DTaP,Tdap,and Td Vaccines (3 - Td or Tdap) 12/02/2031 12/01/2021, 07/16/2010, 05/28/2004 RETIRED - COLONOSCOPY-EVERY 5 YRS AGES 18-100 Discontinued 05/17/2019, 05/17/2019, 05/16/2013, Additional history exists Zoster Vaccines Completed 08/29/2019, 04/30, 04/25/2012 Pneumococcal Vaccine: 65+ Years Completed 10/03/2019, 05/09/2018 Influenza Vaccine (FLU shot) Completed 12/28/2022, 12/01/2021, 12/10/2020, Additional history exists GARDASIL-HPV IMMUNIZATION SERIES Aged Out No longer eligible based on patient's age to complete this topic Hepatitis B Aged Out No longer eligi ble based on patient's age to complete this topic MENINGOCOCCAL (MENACTRA/MENVEO) Aged Out No longer eligible based on patient's age to complete this topic documented as of this encounter Medical Devices Not on filedocumented as of this encounter Care Teams Compression Molding Machine Operator Relationship Specialty Start Date End Date Tess Jones DO [address] [place] [address] PCP - General Family Medicine 04/16/23 documented as of this encounter
--- OUTSIDE RECORDS SUMMARY | 2023-12-11 16:04 | External Medical Summary | Summary of Care ---
Author Name Unknown Organization [facility] Address [address] [place] [address] Phone [phone] Care Team Providers Care Branch Associate Name Role Phone Tess Jones DO Primary Care Provider [phone] Reason for Visit * Reason Onset Date Comments Nutritional Services Documentation 07/20/2023 Encounter Details Date Type Department Care Team (Late st Contact Info) Description 07/20/2023 10:30 AM EDT Scheduled Telephone Nutrition Services [address] [facility] [place] [address] [place] [address] Sumi Dwyer RDN [address] [place] [phone] Arrived Allergies No known active allergiesdocumented as of this encounter (statuses as of 07/20/2023) Medications Medication Sig Dispensed Refills Start Date [...] as of this encounter (statuses as of 07/20/2023) Active Problems Problem Noted Date Diagnosed Date Skin tumor 11/22/2014 Lichenoid keratosis 11/22/2014 Milia 11/22/2014 documented as of this encounter (statuses as of 07/20/2023) Resolved Problems Problem Noted Date Diagnosed Date Resolved Date Peripheral vascular disease 05/06/2020 05/06/2020 Varicella without complication 04/26/2017 documented as of this encounter (statuses as of 07/20/2023) Immunizations Name Administration Dates Next Due COVID-19 mRNA, LNP-s, No Pre serve, 2-Dose Series ([employer]) 02/11/2021,05/08/2020,04/17/2020 Covid-19, Mrna, Lnp-s, Pf, B ivalent, [...] 11/25/2019,03/16/2019 TDAP (age 10 and older)(Boostrix) 12/01/2021 TDAP (age 11 and older)(Adacel) 07/16/2010 Varicella Zoster Vaccine (Adult) 04/25/2012 Zoster [...] Telephone Encounter - Sumi Dwyer RDN - 07/20/2023 2:32 PM EDT [address] [place] [address] Dietitian Phone Outreach Reached out to patient to assess sodium intake with recent elevated blood pressures and offer future nutrition visit. Result of call: Patient did not answer--left a message requesting a call to the [address] [place] [address] Dietitian at [phone] if there are specific questions and schedule an initial nutrition appointment as desired. Electronically signed by: Sumi Dwyer RDN, NUTRITION SERVICES [address] [place] [address] documented in this encounter Plan of Treatment Upcoming Encounters Date Type Department Care Team (Late st Contact Info) Description 08/26/2023 10:40 AM EDT Office Visit Family Practice [address] [place] [phone] Tess Jones DO [address] [place] [address] Scheduled Procedures Name Priority Associated Diagnoses Date/Ti [...] filedocumented as of this encounter Care Teams Branch Associate Relationship Specialty Start Date End Date Tess Jones DO [address] [place] [address] PCP - General Family Medicine 04/16/23 documented as of this encounter
--- OUTSIDE RECORDS SUMMARY | 2023-12-11 16:04 | External Medical Summary | Summary of Care ---
Author Name Unknown Organization [facility] Address [address] [place] [address] Phone [phone] Care Team Providers Care Toll Transmission Worker Name Role Phone Tess Jones DO Primary Care Provider Reason for Visit * Reason Comments Follow Up Encounter Details Date Type Department Care Team (Late st Contact Info) Description 09/24/2023 3:40 PM EDT Office Visit Family Practice [address] [place] [address] [place] [address] Tess Jones DO [address] [place] [address] Dyslipidemia*; Foot callus Allergies No known active allergiesdocumented as of this encounter (statuses as of 09/27/2023) Medications Medication Sig Dispensed Refills Start Date End Date Status Vitamin D3 125 MCG (5000 UT) Oral Capsule Take 1 Capsule by mouth in the morning. States she is taking 2000 IU every other day. . 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 Milia 11/22/2014 documented as of this encounter (statuses as of 09/27/2023) Resolved Problems Problem Noted Date Diagnosed Date Resolved Date Peripheral vascular disease 05/06/2020 05/06/2020 Varicella without complication 04/26/2017 documented as of this encounter (statuses as of 09/27/2023) Immunizations Name Administration Dates Next Due COVID-19 mRNA, LNP-s, No Pre serve, 2-Dose Series (Ongage) 02/11/2021,05/08/2020,04/17/2020 Covid-19, Mrna, Lnp-s, Pf, B ivalent, 30 Mcg, IM, 12 yrs and above (Ongage) 02/10/2022 Pneumococcal Conjugate Vacc, 13 Valent (Prevnar) [...] Passive Smoke Exposure: Never Smokeless Tobacco: Never Tobacco Cessation:Counseling Given: Yes Alcohol Use Standard Drinks/Week Comments No 0 (1 standard drink = 0.6 oz pur e alcohol) PHQ-2 Answer Date Recorded PHQ Adult Total Score 0 09/24/2023 Hunger Vital Sign Answer Date Recorded Within the past 12 months, y ou worried that your food would run out before you got the money to buy more. Never true 04/16/19 24 Within the past 12 months, t he food you bought just didn't last and you didn't have money to get more. Never true 04/16/2023 Childcare Answer Date Recorded Do you feel overwhelmed with taking care of a child, family member or friend? No 04/16/2023 Does your family need help f inding childcare? (Household - for ages 0-17 years) Not on file 04/16/2023 Clothing Answer Date Recorded Have you been unable to get clothing when it was really needed? No 04/16/2023 Is your family able to get c lothes or diapers when needed? (Household - for ages 0-17 years) Not on file 04/16/2023 Personal Safety Answer Date Recorded Do you feel unsafe or have concerns for your saf ety? No 04/16/2023 Do you have concerns for you r family's safety? (Household - for ages 0-17 years) Not on file 04/16/2023 Utilities Answer Date Recorded Do you have trouble paying y our heating, water, or electric bill? No 04/16/2023 Is your family able to pay t he heat, water, or electric bill? (Household - for ages 0-17 years) Not on file 04/16/2023 Does your family have access to good internet? (Household - for ages 0-17 years) Not on file 04/16/2023 Employment Status Answer Date Recorded Are you unemployed or without regular income? No 04/16/2023 Does the household have a re lar source of income? (Household - for ages 0-17 years) Not on file 04/16/2023 Social Connections Answer Date Recorded How often do you feel lonely or isolated from th ose around you? Never 04/16/2023 Financial Resource Strain Answer Date R ecorded Do you have any trouble payi ng for your medications, or do you think you might in the future? No 04/16/2023 Does your family have troubl e paying for medicine? (Household - for ages 0-17 years) Not on file 04/16/2023 Transportation Needs Answer Date Record ed READ ONLY Do you have troubl e getting a ride to medical visits or work? Never True 04/16/2023 Does your family have a hard time getting a ride to doctors visits? (Household - for ages 0-17 years) Not on file 04/16/2023 Has lack of transportation k ept you from medical appointments, meetings, work, or from getting things needed for daily living? Check all that apply. (Adult - for ages 18 years and over) Not on file 04/16/2023 Do you (or your family) have trouble finding or paying for a ride (transportation)? (Household - for ages 0-17 years) Not on file 04/16/2023 Housing Stability Answer Date Recorded Do you currently live in a s helter or have no steady place to sleep at night? No 04/16/2023 READ ONLY Do you think you a re at risk of becoming homeless? No 04/16/2023 Does your family worry about paying for your home or becoming homeless? (Household - for ages 0-17 years) Not on file 0 04/16/2023 Are you homeless or worried that you might be in the future? (Adult - for ages 18 years and over) Not on file Are you (or your family) cindy eless or worried that you might be in the future? (Household - for ages 0-17 years) Not on file Food Insecurity Answer Date Recorded Do you need food for this week? No 04/16/2023 Are you able to get enough f ood for your family? (Household - for ages 0-17 years) Not on file 04/16/2023 Does your family need food t his week? (Household - for ages 0-17 years) Not on file 04/16/2023 Do you always have enough fo od for your family? (Household - for ages 0-17 years) Not on file 04/16/2023 Sex and Gender Information Value Date Recorded Sex Assigned at Female 01/13/2022 3:13 PM EST Gender Identity Female 01/13/2022 3:13 PM EST Sexual Orientation Straight 01/13/2022 3: 13 PM EST Job Start Date Occupation Industry Not on file Not on file Not on file documented as of this encounter Last Filed Vital Signs Vital Sign Reading Time Taken Comments Blood Pressure 138/74 09/24/2023 3:38 PM EDT Pulse 83 09/24/2023 3:38 PM EDT Temperature 36.7 C (98 F) 09/24/2023 3:38 PM EDT Respiratory Rate 14 09/24/2023 3:38 PM EDT Oxygen Saturation 99% 09/24/2023 3:38 PM EDT Inhaled Oxygen Concentration - - Weight 64.1 kg (141 lb 6.4 oz) 09/24/2023 3:38 P M EDT Height 165.1 cm (5' 5") 09/24/2023 3:38 PM EDT Body Mass Index 23.53 09/24/2023 3:38 PM EDT documented in this encounter Progress Notes * Tess Jones, DO - 09/24/2023 4:10 PM EDT SUBJECTIVE: Chief Complaint Patient presents with Follow Up HPI: Veronica Patel is a 73 year old female who presents today for regular return. Pt notes that she feels she is doing well. She did see Dr. Doll for a plantar wart removal. Feels there is a callus building there now. BP elevated. Improved today. She has lost about 10lbs. She was contacted by nutrition but did not answer call to schedule. PHM: Patient Active Problem List Diagnosis Skin tumor Lichenoid keratosis Milia Current Outpatient Medications Medication Sig Dispense Refill Vitamin D3 125 MCG (5000 UT) Oral Capsule Take 1 Capsule by mouth in the morning. States she is taking 2000 IU every other day. . 30 Cap 0 Vitamin C 1000 MG Oral Tablet Take 1 Tablet by mouth in the morning. EQ Daily Fiber 400 MG Oral Capsule (Psyllium) Take 1 Tablet by mouth in the morning. Probiotic (Lactobacillus) Oral Capsule Take 2 Capsules by mouth every evening. Calcium Carbonate 600 MG Oral Tablet (Calcium 600) Take 1 Tablet by mouth in the morning. 20 mcg Vit D . Multivitamin Women 50+ Oral Tablet Take 1 Tablet by mouth in the morning. No current facility-administered medications for this visit. Past Medical History: Diagnosis Date Varicella without complication Past Surgical History: Procedure Laterality Date COLONOSCOPY, DIAGNOSTIC (RECTUM) 05/16/2013 COLONOSCOPY FLEXIBLE PROXIMAL DIAGNOSTIC performed by William Christiansen MD at [facility]COPY [facility] COLONOSCOPY, DIAGNOSTIC (RECTUM) 05/17/2019 adenomatous polyp, diverticulosis, repeat 5 yrs / COLONOSCOPY FLEXIBLE PROXIMAL DIAGNOSTIC performed by William Christiansen MD at ENDOSCOPY [facility] COLONOSCOPY, GI REFERRAL OP 2002 normal DENTAL SURGERY PROCEDURE NEC Dental Surgery Procedure MAMMOGRAM - BILATERAL 01/19/03 birad code MAMMOGRAM - BILATERAL 06/22/06 birad 2 MAMMOGRAM SCREENING-BILATERAL 06/03/05 birad code 2 MAMMOGRAM SCREENING-BILATERAL 07/05/07 birad 2 REMOVAL OF TONSILS, AGE 12+ REMOVE GALLBLADDER Review of patient's allergies indicates: No Known Allergies Family History Problem Relation Name Age of Onset Hypertension Mother watches blood sugar hypothryoid Atrial fibrillation Father Blood Disorder Father 91 phlebitis Heart Disorder Father stent Heart failure Father Thyroid Disorder Daughter Hypothyroidism Other (Carotid Stenosis) Brother Other (Gout) Brother Heart Disorder Brother A.fib Cancer Brother head/sinus--nasopharyngeal cancer Atrial fibrillation Brother Hypertension Brother Heart Disorder Grandmother (Maternal) Uterine cancer Grandmother (Maternal) Heart Disorder Grandfather (Maternal) @73 Arthritis Grandmother (Paternal) Breast Cancer No significant family history Family Status Relation Status Mo Alive Fa Sis Alive Mason Alive Bro Alive MGMA MGFA PGMA PGFA Son Alive No history (Not Specified) Social History Tobacco Use Smoking status: Never Passive exposure: Never Smokeless tobacco: Never Substance Use Topics Alcohol use: No Vaping/E-Cigarette Use Vaping/E-Cigarette Use Never User Vaping/E-Cigarette Substances Nicotine No Other No Flavoring No THC No Cannabidiol (CBD) No Vaping/E-Cigarette Devices Disposable No Pre-filled or Refillable Cartridge No Refillable Tank No Pre-filled Pod No REVIEW OF SYSTEMS: Review of Systems Constitutional: Negative for chills, fatigue, fever and unexpected weight change. Respiratory: Negative for cough, chest tightness, shortness of breath and wheezing. Cardiovascular: Negative for chest pain, palpitations and leg swelling. Gastrointestinal: Negative for abdominal pain, constipation, diarrhea, nausea and vomiting. Musculoskeletal: Negative for arthralgias, gait problem and joint swelling. Skin: Negative for color change, pallor and rash. OBJECTIVE: BP 138/74 (BP Site: Left Arm, BP Position: Sitting, BP Cuff Size: Regular) | Pulse 83 | Temp 36.7 C (98 F) (Tympanic) | Resp 14 | Ht 1.651 m (5' 5") | Wt 64.1 kg (141 lb 6.4 oz) | SpO2 99% | BMI 23.53 kg/m | BSA 1.71 m PHYSICAL EXAM: Physical Exam Constitutional: General: She is not in acute distress. Appearance: She is well-developed. Cardiovascular: Rate and Rhythm: Normal rate and regular rhythm. Heart sounds: Normal heart sounds. No murmur heard. No friction rub. No gallop. Pulmonary: Effort: Pulmonary effort is normal. No respiratory distress. Breath sounds: Normal breath sounds. No wheezing or rales. Abdominal: General: Bowel sounds are normal. There is no distension. Palpations: Abdomen is soft. Tenderness: There is no abdominal tenderness. There is no guarding. Musculoskeletal: General: No tenderness or deformity. Normal range of motion. Skin: General: Skin is warm and dry. Coloration: Skin is not pale. Findings: No erythema or rash. Comments: Callus noted Neurological: Mental Status: She is alert and oriented to person, place, and time. ASSESSMENT/PLAN: (E78.5) Dyslipidemia (primary encounter diagnosis) Plan: Will monitor. ASCVD is elevated. Will watch. (L84) Foot callus Plan: Advised to use a pumice stone after showers to help with callus. Follow-up: 6 months Total time today including reviewing chart before the visit, pertinent labs, imaging reports, face to face time, and documentation time was 32 minutes. Tess Jones DO documented in this encounter Nursing Notes * Miya Patterson LPN - 09/24/2023 3:37 PM EDT Patient here for routine follow up visit. No concerns voiced. documented in this encounter Plan of Treatment Upcoming Encounters Date Type Department Care Team (Late st Contact Info) Description 03/15/2024 11:20 AM EST Office Visit Family Practice [address] [place] [address] [place] [address] Tess Jones DO [address] [facility] [address] Scheduled Procedures Name Priority Associated Diagnoses Date/Ti me COLONOSCOPY FLEXIBLE PROXIMAL DIAGNOSTIC Recall History of colon polyps Health Maintenance Due Date Last Done Comments Cologuard 1997 Fecal Occult Blood Test 1997 Sigmoidoscopy 1997 COVID-19 Vaccine ( season) 2023 12/28/2022, 02/10/2022, 02/11/2021, Additional history exists Influenza Vaccine (FLU shot) (#1) 2023 12/28/2022, 12/01/2021, 12/10/2020, Additional history exists DXA Scan 05/03/2024 05/03/2017, 05/31, 06/05/2004, Additional history exists Colonoscopy 05/16/2024 05/17/2019, 04/29, 05/16/2013, Additional history exists Colorectal Cancer Screening 05/16/2024 Mammogram 07/01/2024 07/02/2023, 0504/2023, 06/11/2022, Additional history exists Depression Screening 09/23/2024 09/24/2023 Lipid Panel 02/02/2028 02/01/2023, 100 04/2021, 05/06/2020, Additional history exists DTaP,Tdap,and Td Vaccines (3 - Td or Tdap) 12/02/2031 12/01/2021, 07/16/2010, 05/28/2004 RETIRED - COLONOSCOPY-EVERY 5 YRS AGES 18-100 Discontinued 05/17/2019, 05/17/2019, 05/16/2013, Additional history exists Zoster Vaccines Completed 08/29/2019, 04/30, 04/25/2012 Pneumococcal Vaccine: 65+ Years Completed 10/03/2019, 05/09/2018 HPV (Gardasil) Vaccine Aged Out No lo nger eligible based on patient's age to complete this topic Hepatitis B Vaccine Aged Out No longe r eligible based on patient's age to complete this topic MENINGOCOCCAL (MENACTRA/MENVEO) Aged Out No longer eligible based on patient's age to complete this topic documented as of this encounter Medical Devices Not on filedocumented as of this encounter Visit Diagnoses Diagnosis Dyslipidemia- Primary Other and unspecified hyperlipidemia Foot callus Corns and callosities documented in this encounter Care Teams Toll Transmission Worker Relationship Specialty Start Date End Date Tess Jones DO [address] [place] [address] PCP - General Family Medicine 09/23/23 documented as of this encounter
[2023-12-11] MEDS: LACTATED RINGER'S 1,000 ML IV SCH (16:09)
[2023-12-12 06:04] LABS: Hematocrit (blood only) 36.4 % (37.0-47.0); Hemoglobin 11.8 g/dl (12.0-16.0); Mean Corpuscular Hemoglobin 30.3 pg (25.0-34.0); Mean Corpuscular Hgb Conc 32.4 g/dL (32.0-36.0); Mean Corpuscular Volume 93.3 fL (80.0-100.0); Mean Platelet Volume 9.2 fL (9.4-12.4); Platelet Count 221 K/uL (130-400); RDW Coefficient of Variation 11.2 % (11.5-14.5); RDW Standard Deviation 37.6 fL (36.4-46.3); White Blood Count 7.12 K/ul (4.8-10.8)
[2023-12-12 06:14] LABS: BUN Creatinine Ratio 24.2 (10-20); Calcium 8.8 mg/dl (8.6-10.3); Magnesium 2.1 mg/dl (1.7-2.4); Phosphorus 3.2 mg/dl (2.5-4.9); Potassium 3.9 mmol/L (3.5-5.1)
[2023-12-12] MEDS: INFLUENZA VACC TS2024-25(65y+)/PF (IIV3) 0.5mL Syr IM ONE (09:07)
--- NOTE | 2023-12-12 11:27 | Surgery Progress Note ---
Date of Service December 12, 2023 Assessment & Plan (1) SBO (small bowel obstruction): Plan: 73-year-old woman with a prior history of a laparoscopic cholecystectomy presents with a small bowel obstruction. I discussed the CT scan findings with the emergency room physician as well as the radiologist directly. It appears there may be an internal hernia, although this is not definite. She has mild dilatation upstream of small bowel loops. On exam, she has minimal signs and symptoms. Her pain has very significantly improved since 10:00 this morning. She has not had any pain medicine while at the emergency department. She does not have fevers or chills. White blood cell count is 14. I had a long discussion with her and her concerning the findings on CT scan. Given the drastic improvement of her symptomatology as well as no signs or symptoms of bowel ischemia or extremis, we will proceed with careful conservative measures for now. She will be admitted to the medicine service and kept n.p.o. with IV fluid hydration. We will perform serial abdominal exams. If she develops any further symptoms or signs of worsening bowel obstruction, we will plan for exploratory laparoscopy with possible laparotomy in the operating room. We will follow her very closely while she is in the hospital. 12/12/2023 - she continues to have no pain, nausea, vomiting. She is now passing flatus. White blood cell count is decreased to normal, at 7. I do not believe her obstruction was due to an internal hernia. We will advance her to clear liquid diet. We will continue to monitor her very closely. Admission and Anticipated Discharge Date Admission Date: December 11, 2023 Subjective Passing flatus this morning. She continues to have no abdominal pain. She denies nausea or vomiting. No further symptomatology. Physical Exam Physical Exam: NAD, A&O x 3 AFVSS NCAT Abdomen: Soft, nontender nondistended Results & Data Vital Signs (Past 12 Hours) Vital Signs Temp Pulse Resp BP Pulse Ox O2 Del Method 12/12/23 07:49 36.6 C 76 16 130/72 92 Room Air Laboratory Results 12/12/23 12/11/23 12/11/23 Range/Units 05:42 14:44 11:55 WBC 7.12 14.72 H (4.8-10.8) K/ul RBC 3.90 L 4.92 (4.20-5.40) M/uL Hgb 11.8 L D 15.1 (12.0-16.0) g/dl Hct 36.4 L 45.5 (37.0-47.0) % MCV 93.3 92.5 (80.0-100.0) fL MCH 30.3 30.7 (25.0-34.0) pg MCHC 32.4 33.2 (32.0-36.0) g/dL RDW Std Deviation 37.6 38.2 (36.4-46.3) fL RDW Coeff of Delgado 11.2 L 11.1 L (11.5-14.5) % Plt Count 221 332 (130-400) K/uL MPV 9.2 L 9.4 (9.4-12.4) fL Immature Gran % (Auto) 0.4 % Neut % (Auto) 92.1 % Lymph % (Auto) 5.6 % Bremer % (Auto) 1.7 % Eos % (Auto) 0.1 % Baso % (Auto) 0.1 % Neut # (Auto) 13.56 H (1.40-6.50) K/uL Lymph # (Auto) 0.82 L (1.20-3.40) K/uL Bremer # (Auto) 0.25 (0.11-0.59) K/uL Eos # (Auto) 0.01 (0.00-0.50) K/uL Baso # (Auto) 0.02 (0.00-0.20) K/uL Immature Gran # (Auto) 0.06 (0.01-0.20) K/uL Sodium 139 138 (136-145) mmol/L Potassium 3.9 4.2 (3.5-5.1) mmol/L Chloride 106 98 (98-107) mmol/L Carbon Dioxide 29 29 (21-32) mmol/L Anion Gap 4 11 (3-11) BUN 22 26 H (6-23) mg/dl Creatinine 0.91 1.00 (0.6-1.2) mg/dl Est Cr Clr Drug Dosing 51.0 46.4 ml/min eGFR 67.45 60.23 BUN/Creatinine Ratio 24.2 H 26.0 H (10-20) Glucose 93 134 H (70-99(Fasting)) mg/dl Calcium 8.8 10.1 (8.6-10.3) mg/dl Phosphorus 3.2 (2.5-4.9) mg/dl Magnesium 2.1 (1.7-2.4) mg/dl Total Bilirubin 1.0 (0.2-1.0) mg/dl AST 28 (13-39) U/L ALT 15 (7-52) U/L Alkaline Phosphatase 87 (34-104) U/L Troponin I High Sens 5.8 (0-14) pg/ml Total Protein 8.7 H (6.0-8.3) gm/dl Albumin 4.7 (3.4-5.0) gm/dl Globulin 4.0 (2.5-4.0) gm/dl Albumin/Globulin Ratio 1.2 (0.9-2) Lipase 14 (11-82) U/L Urine Color Yellow Urine Appearance Clear (Clear) Urine pH 6.0 (4.5-7.5) Ur Specific [place] > 1.045 H (1.000-1.030) Urine Protein Trace H (Negative) Urine Glucose (UA) Negative (Negative) Urine Ketones 1+ H (Negative) Urine Blood Negative (Negative) Urine Nitrite Negative (Negative) Urine Bilirubin Negative (Negative) Urine Urobilinogen Negative (Negative) Ur Leukocyte Esterase Negative (Negative) Urine WBC (Auto) 0-5 (0-5) /hpf Urine RBC (Auto) 0-2 (0-2) /hpf U Hyaline Cast (Auto) 0-2 (0-2) /lpf U Epithel Cells (Auto) 0-2 (0-2) /hpf Urine Bacteria (Auto) None Seen (None Seen)
--- NOTE | 2023-12-12 12:01 | Hospitalist Progress Note ---
Date of Service December 12, 2023 Assessment & Plan (1) SBO (small bowel obstruction): Plan Patient with presentation of small bowel obstruction, suspect has significantly improved/resolved. Communication with surgical team imaging question internal hernia, however patient significantly improved, okay with advancing diet Start clear liquid diet advance as tolerated Monitor for return of bowel function Encourage activity Anticipate discharge Wednesday if remains improved, passing flatus/stool and tolerating diet Admission and Anticipated Discharge Date Admission Date: December 11, 2023 Subjective Patient reports significant improvement in her abdominal symptoms Physical Exam Physical Exam: Constitutional: Alert, nontoxic, no distress HEENT: Mucous membranes moist. Lungs: Clear to auscultation, decreased, no wheezes rales or rhonchi CV: S1-S2, regular Abdomen: Soft, nontender, nondistended, hypoactive bowel sounds Extremities: No significant edema Neuro: No focal deficits Psych: Cooperative, normal mood Results & Data Results & Data Vital Signs (Past 12 Hours) Vital Signs Temp Pulse Resp BP Pulse Ox O2 Del Method 12/12/23 07:49 36.6 C 76 16 130/72 92 Room Air Diagnostic Findings Reviewed imaging, laboratory and diagnostic studies. Pertinent findings as bel ow. WBC 7.1 Hemoglobin 11.8 Electrolytes and renal function stable
--- NOTE | 2023-12-12 12:29 | Electrocardiogram Report ---
Test Reason : Blood Pressure : */* mmHG Vent. Rate : 95 BPM Atrial Rate : 95 BPM P-R Int : 150 ms QRS Dur : 80 ms QT Int : 340 ms P-R-T Axes : 80 60 74 degrees QTcB Int : 427 ms Normal sinus rhythm Cannot rule out Anterior infarct , age undetermined Abnormal ECG No previous ECGs available Confirmed by Grabiel Torres ([id number]) on 12/12/2023 12:29:11 PM Referred By: Confirmed By: Grabiel Torres
--- NOTE | 2023-12-13 07:41 | Surgery Progress Note ---
Date of Service December 13, 2023 Assessment & Plan (1) SBO (small bowel obstruction): Plan: 73-year-old woman with a prior history of a laparoscopic cholecystectomy presents with a small bowel obstruction. I discussed the CT scan findings with the emergency room physician as well as the radiologist directly. It appears there may be an internal hernia, although this is not definite. She has mild dilatation upstream of small bowel loops. On exam, she has minimal signs and symptoms. Her pain has very significantly improved since 10:00 this morning. She has not had any pain medicine while at the emergency department. She does not have fevers or chills. White blood cell count is 14. I had a long discussion with her and her concerning the findings on CT scan. Given the drastic improvement of her symptomatology as well as no signs or symptoms of bowel ischemia or extremis, we will proceed with careful conservative measures for now. She will be admitted to the medicine service and kept n.p.o. with IV fluid hydration. We will perform serial abdominal exams. If she develops any further symptoms or signs of worsening bowel obstruction, we will plan for exploratory laparoscopy with possible laparotomy in the operating room. We will follow her very closely while she is in the hospital. 12/12/2023 - she continues to have no pain, nausea, vomiting. She is now passing flatus. White blood cell count is decreased to normal, at 7. I do not believe her obstruction was due to an internal hernia. We will advance her to clear liquid diet. We will continue to monitor her very closely. 12/13/2023 - Had 2 bowel movements this morning. No pain. She may be discharged to home. Follow-up as needed. Admission and Anticipated Discharge Date Admission Date: December 11, 2023 Subjective Doing well this morning. Had 2 bowel movements. No pain. No nausea or vomiting. Tolerating diet. Physical Exam Physical Exam: NAD, A&O x 3 AFVSS NCAT Abdomen: Soft, nontender nondistended Results & Data Vital Signs (Past 12 Hours) Vital Signs Temp Pulse Resp BP Pulse Ox O2 Del Method 12/13/23 07:24 Room Air 12/12/23 20:02 36.7 C 74 20 152/84 H 95 Room Air
[2023-12-13 07:51] VITALS: BP 134/79; PULSE 77; RESP 16; TEMP 97.9; O2SAT 96
[2023-12-13 08:17] LABS: BUN Creatinine Ratio 12.8 (10-20); Magnesium 2.1 mg/dl (1.7-2.4); Potassium 3.8 mmol/L (3.5-5.1)
--- NOTE | 2023-12-13 11:53 | Hospitalist Progress Note ---
Date of Service December 13, 2023 Assessment & Plan (1) SBO (small bowel obstruction): Plan: Presented with small bowel obstruction likely secondary to adhesions Remote history of gallbladder surgery This is her first attack Appreciate surgery input and recommendation Has been tolerating regular diet and has been having regular bowel movement No abdominal/obstructive symptoms She has been ambulating in the hallway without any difficulties Will be discharged home this afternoon Plan Note from prior hospitalist: Patient with presentation of small bowel obstruction, suspect has significantly improved/resolved. Communication with surgical team imaging question internal hernia, however patient significantly improved, okay with advancing diet Start clear liquid diet advance as tolerated Monitor for return of bowel function Encourage activity Anticipate discharge Wednesday if remains improved, passing flatus/stool and tolerating diet Admission and Anticipated Discharge Date Admission Date: December 11, 2023 Subjective 12/13/2023 The patient was seen and examined in medical floor She has been tolerating regular diet and moving her bowels normally Denies any signs and or symptoms of obstruction of intestine She will be discharged home this afternoon Review of Systems Review of Systems: All systems reviewed and are unremarkable except as noted below Physical Exam Physical Exam: Sitting on a chair without any acute distress Constitutional: well developed and well nourished; not ill appearing Eyes: PERRL, conjunctivae normal, anicteric sclerae ENMT: external ear and nose normal, oropharynx normal Neck: trachea midline, no thyromegaly Respiratory: no respiratory distress Auscultation: lungs clear to auscultation bilaterally Cardiovascular: Rate/Rhythm: regular rate and regular rhythm; not tachycardic Heart Sounds: normal S1 and normal S2; no murmur Extremities: no edema Gastrointestinal (Abdomen): Inspection/Auscultation: normal bowel sounds; abdomen not distended Percussion/Palpation: abdomen soft; abdomen nontender Musculoskeletal: No acute arthritis involving any of the joint Neurologic: normal touch/pain/proprioception and moves all extremities; no focal motor deficits Psychiatric: A+Ox3, euthymic affect Lymphatic: no cervical or axillary lymphadenopathy Results & Data Results & Data Vital Signs (Past 12 Hours) Vital Signs Temp Pulse Resp BP Pulse Ox O2 Del Method 12/13/23 07:51 36.6 C 77 16 134/79 96 Room Air 12/13/23 07:24 Room Air Laboratory Results [facility] 12/13/23 07:21 Sodium 142 Potassium 3.8 Chloride 105 Carbon Dioxide 32 BUN 11 Creatinine 0.86 Glucose 96 Calcium 9.0 Medications Administered Current Inpatient Medications Acetaminophen (Acetaminophen 325 Mg Tab) 650 mg PO Q4H PRN PRN Reason: pain/fever Stop: 01/10/24 16:03 Ondansetron HCl (Ondansetron Inj 2 Mg/Ml 2 Ml Vial) 4 mg IV Q6H PRN PRN Reason: Nausea Stop: 01/10/24 16:03
--- NOTE | 2023-12-13 16:40 | Discharge Summary ---
Date of Service December 13, 2023 Admission HPI Per Admitting Provider Veronica Patel is a 73y/o F with PMHx significant for dyslipidemia, prolapsed uterus and plantar warts who presented to the ED for evaluation of abdominal pain with associated nausea and vomiting. History obtained from patient and associated chart review. Patient reports intermittent severe abdominal pain that started last night. Mentions that the pain is located mostly in her upper abdominal region. States that the pain was coming in waves and was very sharp in intensity but lasting only a few minutes at a time. She had 2 episodes of vomiting since last night. Denies any fevers or chills. Only past surgical his tory includes a laparoscopic cholecystectomy. No other abdominal operations that she recalls. Her pain is now well-controlled and she denies any nausea at this time. She has had 2 very small bowel movements since last night, describes them as soft in characteristic. Mentions that her stool looked a little bit darker in appearance, maybe even black this morning. She contributed this to eating some blueberries the other day. Her last meal was yesterday evening which consisted of an apple and some crackers. Believes that she last passed gas yesterday afternoon. She has not passed any gas today. Patient is not on any prescription medications. She does not smoke nor drink. Admission Exam Per Admitting Provider Physical Exam: General: WD/WN, vitals as above, NAD, sitting up in bed, pleasant, conversing appropriately. A+Ox3, euthymic affect. HEENT: Normocephalic, atraumatic. PERRL, conjunctivae normal, anicteric sclerae. External ear and nose normal, oropharynx normal. Respiratory: Normal respiratory effort, lungs clear to auscultation, no wheeze, rales, rhonchi. No accessory muscle use. Cardiovascular: Regular rate, rhythm, no murmur, normal peripheral pulses, no BLE edema. Vessels: No JVD. Abdomen/GI: Mostly absent bowel sounds, soft, tender to palpation in upper abdominal region, no hepatosplenomegaly. Extremities/Musculoskeletal: No cyanosis or clubbing, extremities motor strength intact, moves all extremities. Neurologic: EOMI, no focal deficits, CN's II-XI not formally tested but appear grossly intact bilaterally. Skin: No rashes, normal color, warm/dry. Principal Diagnosis High-grade SBOresolved Discharge Exam Sitting on a chair without any acute distress Constitutional well developed and well nourished; not ill appearing Eyes PERRL, conjunctivae normal, anicteric sclerae ENMT external ear and nose normal, oropharynx normal Neck trachea midline, no thyromegaly Respiratory no respiratory distress Auscultation: lungs clear to auscultation bilaterally Cardiovascular Rate/Rhythm: regular rate and regular rhythm; not tachycardic Heart Sounds: normal S1 and normal S2; no murmur Extremities: no edema Gastrointestinal (Abdomen) Inspection/Auscultation: normal bowel sounds; abdomen not distended Percussion/Palpation: abdomen soft; abdomen nontender Neurologic normal touch/pain/proprioception and moves all extremities; no focal motor deficits Psychiatric A+Ox3, euthymic affect Lymphatic no cervical or axillary lymphadenopathy Discharge Data Consultations 12/11/23 13:09 Consult General Surgery Stat 12/11/23 13:36 ED Decision to Admit Stat Ordered Studies 12/11/23 11:48 CT abd pelvis IV con only Stat Hospital Course (1) SBO (small bowel obstruction): Presented with small bowel obstruction likely secondary to adhesions Remote history of gallbladder surgery This is her first attack Appreciate surgery input and recommendation Has been tolerating regular diet and has been having regular bowel movement No abdominal/obstructive symptoms She has been ambulating in the hallway without any difficulties Will be discharged home this afternoon Plan Note from prior hospitalist: Patient with presentation of small bowel obstruction, suspect has significantly improved/resolved. Communication with surgical team imaging question internal hernia, however patient significantly improved, okay with advancing diet Start clear liquid diet advance as tolerated Monitor for return of bowel function Encourage activity Anticipate discharge Wednesday if remains improved, passing flatus/stool and tolerating diet Total Time Total Time Spent Total Time Spent (In Minutes): 35 minutes Discharge Plan Discharge Items Patient Disposition: Home - Self-Care Reason For Visit: HIGH-GRADE SBO Discharge Diagnosis: High-grade SBOresolved Condition on Discharge: Good Activity: Resume your previous activity Non-emergency contact: Primary Care Provider Call non-emergency contact if: you have any medication questions and your symptoms worsen Follow-up/Referrals: Tess Jones DO [Primary Care Provider] - 12/21/23 1:10 pm (Date & Time 12/21/2023 1:10 PM Provider Suzie Pharmacist [address] [facility] [address], [place] Date & Time 12/21/2023 1:40 PM Provider Tess Jones, DO Department Family Practice [address], [place] ) Diet: Regular and Low Fiber Addtl Attending Provider Instructions: Please take precautions to avoid fall Try to drink more fluid Try to have low fiber diet and have regular bowel movement Please keep appointment with the healthcare providers Pending Studies at Discharge: No Stand-Alone Forms: My [facility], Smoking Cessation Medications and DC Order Prescriptions: No Action No Known Home Medications Discharge Orders: Discharge Order (Routine); Ordered 12/13/23 Ordered By: Tracy Mclaughlin Admission Data Admit Date/Time: 12/11/23 13:47 Attending Provider: Tracy Mclaughlin Admit Provider: Narciso Stephen Primary Care Provider: Tess Jones Other Providers: Donnie Horvath; Narciso Stephen; Matthew Knowles Other Interventions: Discharge Summary Assessment (RN) Last Done: 12/13/23 12:23
== END 2023-12-13 13:22 | disposition home or self-care (01) | DRG 390 ==
LOC: ED 11:38 → SUATTDRO 13:47 → 3W 13:47